=== PATIENT | male | born 1965 | race Caucasian/White ===

== ENCOUNTER 2018-04-01 10:02 | Emergency (ER) | payer SELFPAY ==
[2018-04-01 10:04] VITALS: BP 159/88; PULSE 82; RESP 18; TEMP 36.5; O2SAT 99; BMI 33.7
--- NOTE | 2018-04-01 10:17 | EKG12_ITS ---
Test Reason : AB PAIN Blood Pressure : / mmHG Vent. Rate : 081 BPM Atrial Rate : 081 BPM P-R Int : 150 ms QRS Dur : 078 ms QT Int : 368 ms P-R-T Axes : 035 082 055 degrees QTc Int : 427 ms Normal sinus rhythm Normal ECG Confirmed by SULEMA TAYLOR, NELLA ([id number]), material expeditor LEO BARRAGAN ([id number]) on 04/04/2018 1:31:53 PM Referred By: JAYLON Confirmed By:NELLA LEONE MD
--- NOTE | 2018-04-01 10:17 | CT_ITS ---
STUDY: CT ABDOMEN AND PELVIS WITHOUT CONTRAST REASON FOR EXAM: Male, 52 years old. 2 1/2 year history of right lower quadrant pain and nausea. RADIATION DOSAGE (If Supplied By Facility): CTDIvol = ( 21.12 ) mGy, DLP = ( 1165.91 ) mGycm TECHNIQUE: Transaxial images were obtained from the dome of the diaphragm to the symphysis pubis without oral contrast, and without intravenous contrast. Sagittal and coronal images were reconstructed. Individualized dose optimization techniques were used for this CT. COMPARISON: None. FINDINGS: Mild degree of increased linear markings at the right lung base suggestive of a atelectasis. The visualized portions of the heart are within normal limits. There is a 1 cm well-defined hypodensity in the posterior superior portion of the right lobe of the liver suggestive of a small cyst. There are surgical clips in the gallbladder fossa consistent with a prior cholecystectomy. Normal spleen. Normal pancreas. Normal bilateral adrenal glands. Normal right kidney. There is a 4.8 mm nonobstructive calculus in the lower pole calyx of the left kidney. There is a small hiatal hernia. Normal small intestine. There are scattered colonic diverticula consistent with diverticulosis. There are surgical clips in the region of the appendix consistent with a prior appendectomy. There is scattered atherosclerotic calcification of the abdominal aorta, without a demonstrated aneurysm. Normal inferior vena cava. Normal retroperitoneum. Normal urinary bladder. There are prostatic calcifications. Normal abdominal wall. There are mild degenerative changes of the visualized lumbar spine. Straightening of the normal lumbar lordosis. CT/Abdomen/Pelvis without Cont IMPRESSION: 4.8 mm nonobstructive calculus in the lower pole calyx of the left kidney. Sigmoid diverticulosis. Findings suggestive of a small cyst in the superior posterior aspect of the right lobe of the liver. Electronically Signed: Igor Davis MD at 11:18 EST Tel [phone], Service support ,
--- NOTE | 2018-04-01 10:25 | ED.DCSUM_ITS ---
- ER Visit Summary Date of Service: 04/01/18 Chief Complaint: [] Right-sided abdominal pain intermittently for about 3 years History of Present Illness: The patient is a 52 M [] history of intermittent right-sided abdominal pain for about 3 years that originally occurred after he had done heavy lifting with rocks, he indicates he chronically has pain to that side of his body. It causes some nausea sense of constant bloating, he has not seen a physician for this pain. Yesterday he was lifting quite a bit at work he developed recurrence of this pain and it persisted into the morning came in for evaluation, he takes his hand and draws across his entire right side of the abdomen, he has been able to eat and drink he has had normal bowel bladder habits no fever, Further he reports a family history for cancer in the mother and the father and he has been concerned for some time about some type of a mass causing the above pain he lives in [place] does not believe he can obtain the appropriate care at that facility local facilities so he came to this hospital for evaluation, he is on no medications and denies any past history Physical Examination: [] 158/88 afebrile, General, no distress resting comfortably HEENT is generally unremarkable The neck is supple no adenopathy Cardiovascular, regular rate and rhythm Lungs, clear bilateral Abdomen, soft nontender he points to the right side of his abdomen around the right middle quadrant however the palpation of the abdomen reveals no areas of focal tenderness rebound guarding organomegaly again this pain tends to be intermittent his exam to inspection shows nothing acute he denies any pain below of the umbilicus, his urinary and bowel habits have been normal Extremities, no clubbing cyanosis or edema Neurologic, awake alert answering questions appropriately moving all 4 extremities All the above IV fluids screening labs pain management CT Insert normal adult exam Test Results: [] Emergency Department Course and Treatment: [] CBC chemistry UA are all generally unremarkable, he asked that the PSA be drawn the study was also within normal range at 0.8, the abdominal CT shows nothing acute see that report and all the reports, there appears to be a small cyst in the liver and has some kidney stones in the left kidney nothing else that appears acute Spent time explaining all the above the patient and explained the concept of the fact that while his tests today are unremarkable he will need other outpatient management to determine his symptoms he understands he is referred to local [place] primary care physicians he was seen a bland diet follow-up with them return for change in symptoms Treatment Plan: [] Disposition: [] Home stable Impression: [] Intermittent right-sided abdominal pain for years etiology unclear This note was generated with [employer] dictation software. It may contain incorrect words, spelling, and punctuation that were not noted in review of the chart prior to signing ED Disposition - Plan for ED Patient: Chief Complaint: Abd Pain Referrals: Care Physician,No Primary [Primary Care Provider] -
[2018-04-01] MEDS: morphine 8 MG/ML Syringe IV (10:31)
[2018-04-01] MEDS: 0.9% Normal Saline 1,000 ML 1000 ML IV (10:31)
[2018-04-01] MEDS: Ondansetron 4 MG/2 ML Vial IV (10:31)
[2018-04-01 10:47] LABS: Absolute Lymphocyte Count 1.86 X10^3/ul (0.83-4.51); Absolute Neutrophil Count 6.4 X10^3/uL (2.0-7.7); Basophil# 0.03 X10^3/uL; Basophil% 0.3 % (0-1); Eosinophil# 0.03 X10^3/uL; Eosinophils% 0.3 % (0-5); Hematocrit 45.3 % (40-54); Hemoglobin 16.3 g/dl (13.0-16.5); Lymphocyte # 1.86 X10^3/ul (4.0); Lymphocyte % 20.7 % (19-41); Mean Corpuscular Hgb 30.2 pg (27.0-32.0); Mean Corpuscular Volume 83.9 fL (80-94); Monocyte# 0.65 X10^3/uL; Monocyte% 7.2 % (0-10); Neutrophil # 6.38 X10^3/uL (2.7-7.7); Neutrophil % 70.9 % (47-70); POSITIVE COUNT NO; POSITIVE DIFFERENTIAL NO; POSITIVE MORPHOLOGY NO; Platelet Count 254 K/mm3 (150-450); RBC Distribution Width CV 13.2 % (11.6-14.6)
[2018-04-01 10:54] LABS: AST(SGOT) 12 U/L (15-37); Alanine Aminotransfer ALT/SGPT 24 U/L (16-61); Albumin, Serum 3.7 g/dL (3.2-5.0); Alkaline Phosphatase 77 U/L (45-117); Anion Gap 8 (5-15); BUN 10 mg/dL (7-18); BUN/Creat Ratio 8.8 RATIO (10-20); Bilirubin, Direct 0.15 mg/dL (0.00-0.30); Calcium,Total 9.3 mg/dL (8.5-10.1); Chloride 103 mmol/L (98-107); Creatinine, Serum 1.14 mg/dL (0.70-1.30); EST Glomerular Filtration Rate 72 mL/min (>60); Est Glom Filt Rate - Afr Amer 87 mL/min (>60); Estimated Creatinine Clearance 79.15 ml/min; Globulin 4.1 g/dL (2.2-4.2); Glucose 96 mg/dL (74-106); Lipase 182 U/L (73-393); PSA,Total- Diagnostic 0.89 ng/mL (0.0-4.0); Potassium 3.9 mmol/L (3.5-5.1); Protein, Total 7.8 g/dL (6.4-8.2); Sodium Level 136 mmol/L (136-145)
[2018-04-01 11:55] LABS: Mucous, Urine 0 SEEN /hpf (<or=2+); Squamous Epithelial Cells - UA 0 SEEN /hpf (0-5); White Blood Cells 0 SEEN /hpf (0-5)
[2018-04-01 11:56] LABS: Color, Urine Yellow (Yellow); Glucose, Dipstick Normal (Normal); Ketone-Dipstick Negative (Negative); Leukocyte Esterase-Dipstick Negative /ul (Negative); Nitrite-Dipstick Negative (Negative); Occult Blood-Urine 25 /ul (Negative); Protein-Dipstick Negative (Negative); Specific Gravity, Urine 1.015 (1.002-1.030); Urine Bilirubin Dipstick Negative (Negative); Urine Clarity Sl. Cloudy (Clear); Urine Urobilinogen Normal (Normal)
[2018-04-01 12:02] LABS: Bacteria RARE /hpf (None Seen); Red Blood Cells-Urine 0-5 SEEN /hpf (0-5)
--- NOTE | 2018-04-01 12:31 | ED.DEP ---
ED Disposition - Plan for ED Patient: Chief Complaint: Abd Pain Instructions: ED Abdominal Pain Unkn Cause Referrals: Care Physician,No Primary [Primary Care Provider] - Dimas Pandya MD [STAFF PHYSICIAN] -
--- NOTE | 2018-04-01 12:46 | ED.DEP ---
ED Disposition - Plan for ED Patient: Chief Complaint: Abd Pain Instructions: ED Abdominal Pain Unkn Cause Male Referrals: Dimas Pandya MD [STAFF PHYSICIAN] - Care Physician,No Primary [Primary Care Provider] -
--- OUTSIDE RECORDS SUMMARY | 2018-07-03 18:38 | XMS RPT_ITS ---
:1965 Author Organization [facility] Care Team Providers Name Role Phone Madhu Regalado Attending Unavailable Primay Care Physicia, No Primary Care Unavailable PROBLEMS PROBLEMS No Problem Records FoundPROCEDURES PROCEDURES No Procedure Records FoundRESULTS RESULTS 12 LEAD ELECTROCARDIOGRAM Observed: 04/04/2018 Status: F Source: [place] 1:32 PM [facility] REPOSITORY [facility] Cardiovascular Services [address] [place] [address] 12 Lead EKG 04/01/18 1034 MR#: [id number] Acct: [id number] Name: MAGGIE BARRAGAN Rep #: [id number] : 1965 52 From: Gordo Leone MD Attending Dr: Status: DEP ER Ordering Dr: Madhu Regalado MD Date: 04/01/18 Location: ED Sex: M C Admitted: Test Reason : AB PAIN Blood Pressure : / mmHG Vent. Rate : 081 BPM Atrial Rate : 081 BPM P-R Int : 150 ms QRS Dur : 078 ms QT Int : 368 ms P-R-T Axes : 035 082 055 degrees QTc Int : 427 ms Normal sinus rhythm Normal ECG Confirmed by GORDO LEONE MD ([id number]), make up editor LEO BARRAGAN ([id number]) on 04/04/2018 1:31:53 PM Referred By: JAYLON Confirmed By:GORDO LEONE MD 04/04/18 1331 Date Gordo Leone MD CC: MD Charles Regalado; No Primary Care Physician Signed EMERGENCY DEPARTMENT Observed: 04/02/2018 Status: F Source: [place] SUMMARY 11:37 PM [facility] REPOSITORY [facility] Medical Records Department [address] [place] [address] Emergency Department Summary 04/01/18 1022 MR#: [id number] Acct: [id number] Name: MAGGIE BARRAGAN Rep #: [id number] : 1965 52 From: Madhu Regalado MD PCP: Care Physician, No Primary Status: DEP ER - ER Visit Summary Date of Service: 04/01/18 Chief Complaint: [] Right-sided abdominal pain intermittently for about 3 years History of Present Illness: The patient is a 52 M [] history of intermittent right-sided abdominal pain for about 3 years that originally occurred after he had done heavy lifting with rocks, he indicates he chronically has pain to that side of his body. It causes some nausea sense of constant bloating, he has not seen a physician for this pain. Yesterday he was lifting quite a bit at work he developed recurrence of this pain and it persisted into the morning came in for evaluation, he takes his hand and draws across his entire right side of the abdomen, he has been able to eat and drink he has had normal bowel bladder habits no fever, Further he reports a family history for cancer in the mother and the father and he has been concerned for some time about some type of a mass causing the above pain he lives in [facility] does not believe he can obtain the appropriate care at that facility local facilities so he came to this hospital for evaluation, he is on no medications and denies any past history Physical Examination: [] 158/88 afebrile, General, no distress resting comfortably HEENT is generally unremarkable The neck is supple no adenopathy Cardiovascular, regular rate and rhythm Lungs, clear bilateral Abdomen, soft nontender he points to the right side of his abdomen around the right middle quadrant however the palpation of the abdomen reveals no areas of focal tenderness rebound guarding organomegaly again this pain tends to be intermittent his exam to inspection shows nothing acute he denies any pain below of the umbilicus, his urinary and bowel habits have been normal Extremities, no clubbing cyanosis or edema Neurologic, awake alert answering questions appropriately moving all 4 extremities All the above IV fluids screening labs pain management CT Insert normal adult exam Test Results: [] Emergency Department Course and Treatment: [] CBC chemistry UA are all generally unremarkable, he asked that the PSA be drawn the study was also within normal range at 0.8, the abdominal CT shows nothing acute see that report and all the reports, there appears to be a small cyst in the liver and has some kidney stones in the left kidney nothing else that appears acute Spent time explaining all the above the patient and explained the concept of the fact that while his tests today are unremarkable he will need other outpatient management to determine his symptoms he understands he is referred to local [place] primary care physicians he was seen a bland diet follow-up with them return for change in symptoms Treatment Plan: [] Disposition: [] Home stable Impression: [] Intermittent right-sided abdominal pain for years etiology unclear This note was generated with [employer] dictation software. It may contain incorrect words, spelling, and punctuation that were not noted in review of the chart prior to signing ED Disposition - Plan for ED Patient: Chief Complaint: Abd Pain Referrals: Care Physician,No Primary [Primary Care Provider] - What to do if you have Problems For any increased pain, shortness of breath, bleeding, nausea or vomiting, chest pain, or any unexpected problems, contact your Primary Care Provider. Call [facility] ([phone]) or report to the closest Emergency Room. Call 911 if necessary. 04/02/18 5870 <Electronically signed by Madhu Regalado MD> Date Madhu Regalado MD Cosigner Signature (If Indicated): Date CC: No Primary Care Physician DISCHARGE INSTRUCTION Observed: 04/01/2018 Status: F Source: [place] 12:46 PM [facility] REPOSITORY [facility] Medical Records Department [address] [address] Discharge Instruction 04/01/18 1246 MR#: [id number] Acct: [id number] Name: YUNGMAGGIE L Rep #: [id number] : 1965 52 From: Madhu Regalado MD PCP: Sandro Physician, No Primary Status: REG ER ED Disposition - Plan for ED Patient: Chief Complaint: Abd Pain Instructions: ED Abdominal Pain Unkn Cause Male Referrals: Dimas Barragan MD [STAFF PHYSICIAN] - Care Physician,No Primary [Primary Care Provider] - What to do if you have Problems For any increased pain, shortness of breath, bleeding, nausea or vomiting, chest pain, or any unexpected problems, contact your Primary Care Provider. Call [email or web address] ([phone]) or report to the closest Emergency Room. Call 911 if necessary. 04/01/18 1246 <Electronically signed by Madhu Regalado MD> Date Madhu Regalado MD Cosigner Signature (If Indicated): Date CC: No Primary Care Physician DISCHARGE INSTRUCTION Observed: 04/01/2018 Status: F Source: [place] 12:31 PM [facility] REPOSITORY [facility] Medical Records Department [address] [place] [address] Discharge Instruction 04/01/18 1231 MR#: [id number] Acct: [id number] Name: YUNGMAGGIE Parsons Rep #: [id number] : 1965 52 From: Madhu Regalado MD PCP: Sandro Physician, No Primary Status: REG ER ED Disposition - Plan for ED Patient: Chief Complaint: Abd Pain Instructions: ED Abdominal Pain Unkn Cause Referrals: Care Physician,No Primary [Primary Care Provider] - Dimas Barragan MD [STAFF PHYSICIAN] - What to do if you have Problems For any increased pain, shortness of breath, bleeding, nausea or vomiting, chest pain, or any unexpected problems, contact your Primary Care Provider. Call [facility] ([phone]) or report to the closest Emergency Room. Call 911 if necessary. 04/01/18 1231 <Electronically signed by Madhu Regalado MD> Date Madhu Regalado MD Cosigner Signature (If Indicated): Date CC: No Primary Care Physician URINALYSIS, COMPLETE Collected: 04/01/2018 Status: F Source: [place] 11:45 AM [facility] REPOSITORY Order Comment: Order Date: 04/01/18 How was Urine Obtained? CLEAN CATCH TYPE CODE TESTS RESULT OUT OF RANGE REFERENCE UNITS LAB L400.3000 Yellow COLOR Normal Yellow LAB L400.3050 Clear Normal CLARITY Sl. Cloudy LAB L400.3200 Normal mg/dl Normal GLUCOSE, UR Normal LAB L400.3300 Negative mg/dL Normal BILIRUBIN URINE Negative LAB L400.3400 Negative mg/dl Normal KETONE UR Negative LAB L400.3465 1.002-1.030 Normal SP.GR. DIPSTX 1.015 LAB L400.3550 5.0 - 8.0 pH UR Normal 5.0 LAB L400.3600 Negative mg/dl PROT Normal DIPSTX Negative LAB L400.3700 Normal mg/dl Normal UROBILI Normal LAB L400.3750 Negative Normal NITRITE UR Negative LAB L400.3780 Negative /ul High 25 OCCULT BLOOD-UR LAB L400.3800 Negative /ul LEUK Normal ESTERASE Negative LAB L400.4050 0-5 /hpf WBC 0 Normal SEEN LAB L400.4100 0-5 /hpf Normal RBC-UA 0-5 SEEN LAB L400.4150 0-5 /hpf SQUAM 0 Normal EPI SEEN LAB L400.4300 None Seen /hpf Normal BACTERIA RARE LAB L400.4350 <or=2+ /hpf 0 Normal MUCUS, URINE SEEN Performed By: #### L400.0001 #### [facility] [address] [place], [place], [address] CBC W/DIFF, AUTOMATED Collected: 04/01/2018 Status: F Source: [place] 10:25 AM [facility] REPOSITORY TYPE CODE TESTS RESULT OUT OF RANGE REFERENCE UNITS LAB L100.1000 4.4-11.0 K/mm3 Normal WBC 9.0 LAB L100.1200 4.6-6.2 M/mm3 Normal RBC 5.40 LAB L100.1300 13.0-16.5 g/dl Normal HGB 16.3 LAB L100.1400 40-54 % Normal HCT 45.3 LAB L100.1500 80-94 fL Normal MCV 83.9 LAB L100.1600 27.0-32.0 pg Normal MCH 30.2 LAB L100.1700 32-36 g/gl Normal MCHC 36.0 LAB L100.1810 11.6-14.6 % Normal RDW CV 13.2 LAB L100.1820 35.1-43.9 fl Normal RDW SD 40.0 LAB L100.1900 150-450 K/mm3 Normal PLT 254 LAB L100.2000 6.2-12.0 fl Normal MPV 10.0 LAB L100.2100 47-70 % High NEUT% 70.9 LAB L100.2200 19-41 % Normal LY% 20.7 LAB L100.2300 0-10 % Normal MONO% 7.2 LAB L100.2400 0-5 % Normal EO% 0.3 LAB L100.2500 0-1 % Normal BASO% 0.3 LAB L100.2550 0.0-0.9 % Normal IM GRAN % 0.600 Result Comment: IG% - Immature Granulocytes (promyelocytes, myelocytes and metamyelocytes) > 1% indicates that a LEFT SHIFT is Present. LAB L100.2620 2.0-7.7 X10 3/uL Normal Absolute Neut 6.4 LAB L100.2720 0.83-4.51 X10 3/ul Normal Absolute Lymph 1.86 Performed By: #### L100.0100 #### [facility] [address] [place], [place], [address] BASIC METABOLIC Collected: 04/01/2018 Status: F Source: [place] PROFILE (BMP) 10:25 AM [facility] REPOSITORY TYPE CODE TESTS RESULT OUT OF RANGE REFERENCE UNITS LAB L501.0100 74-106 mg/dL Normal GLU 96 Result Comment: Please note revised GLUCOSE reference range effective 2017. LAB L501.1000 7-18 mg/dL Normal BUN 10 LAB L501.1100 0.70-1.30 mg/dL Normal CREAT,SERUM 1.14 Result Comment: The validity of the calculated GFR AND GFRAA in patients over 70 years has not been determined. Clinical correlation is essential. LAB L501.1110 >60 mL/min Normal EST GFR 72 Result Comment: Non- GFR Calc LAB L501.1115 >60 mL/min Normal EST GFR - AA 87 Result Comment: GFR Calc LAB L501.1255 ml/min Normal Estimated CRCL 79.15 LAB L501.1300 10-20 RATIO Low BUN/CRE 8.8 LAB L501.2200 8.5-10 mg/dL Normal .1 CA 9.3 LAB L501.5300 136-14 mmol/L Normal 5 NA 136 LAB L501.5600 3.5-5. mmol/L Normal 1 K 3.9 LAB L501.5900 98-107 mmol/L Normal CL 103 LAB L501.6100 21.0-3 mmol/L Normal 2.0 CO2 25.0 LAB L501.6200 5-15 Normal GAP 8 Performed By: #### L500.2500, L500.3400, L501.2450, L501.4010, L501.9940 #### [facility] [address] [place], [address] LIVER PROFILE Collected: 04/01/2018 Status: F Source: [place] 10:25 AM [facility] REPOSITORY TYPE CODE TESTS RESULT OUT OF RANGE REFERENCE UNITS LAB L501.1500 6.4-8.2 g/dL Normal T PROT 7.8 LAB L501.1800 3.2-5.0 g/dL Normal ALB 3.7 LAB L501.1950 2.2-4.2 g/dL Normal GLOB 4.1 LAB L501.4100 15-37 U/L Low AST 12 LAB L501.4305 45-117 U/L Normal ALK P 77 LAB L501.4405 16-61 U/L Normal ALT 24 LAB L501.4600 0.20-1.00 mg/dL Normal T BILI 0.40 LAB L501.4700 0.00-0.30 mg/dL Normal D BILI 0.15 Performed By: #### L500.2500, L500.3400, L501.2450, L501.4010, L501.9940 #### [facility] [address] [place], [address] LIPASE Collected: 04/01/2018 Status: F Source: [place] 10:25 AM [facility] REPOSITORY TYPE CODE TESTS RESULT OUT OF RANGE REFERENCE UNITS LAB L501.2450 73-393 U/L Normal LIPASE 182 Performed By: #### L500.2500, L500.3400, L501.2450, L501.4010, L501.9940 #### [facility] [address] [place], [place], [address] TROPONIN-I Collected: 04/01/2018 Status: F Source: [place] 10:25 AM [facility] REPOSITORY TYPE CODE TESTS RESULT OUT OF RANGE REFERENCE UNITS LAB L501.4010 <0.045 ng/mL Normal < 0.015 TROPONIN-I Result Comment: TROPONIN-I EXPECTED VALUES <0.045 Negative 0.045 - 0.590 Consistent with Cardiac Damage > OR = 0.600 Critical Value Not every elevated troponin is indicative of NJ. These values should be used with clinical judgement in examining the patient's clinical picture for diagnosis. To establish a diagnosis of NJ versus myocardial injury, there must be a demonstrated rise and/or fall in the troponin values, in addition to ischemic symptoms, EKG changes, new regional wall motion abnormality, and/or angiographical evidence. PLEASE NOTE: REFERENCE RANGES EDITED 17 Performed By: #### L500.2500, L500.3400, L501.2450, L501.4010, L501.9940 #### [facility] [address] [place], [place], [address] PSA,TOTAL- DIAGNOSTIC Collected: 04/01/2018 Status: F Source: [place] 10:25 AM [facility] REPOSITORY TYPE CODE TESTS RESULT OUT OF RANGE REFERENCE UNITS LAB L501.9940 0.0-4.0 ng/mL PSA, Normal DIAGNOSTIC 0.89 Result Comment: This test was performed using the TPSA assay method for the [employer] chemistry system. Values obtained with different assay methods cannot be used interchangably. When changing PSA assays in the course of monitoring a patient, additional sequential testing should be carried out to confirm baseline values. Performed By: #### L500.2500, L500.3400, L501.2450, L501.4010, L501.9940 #### [facility] [address] [place], [address] ABDOMEN/PELVIS WITHOUT Observed: 04/01/2018 Status: F Source: [place] CONT 10:19 AM [facility] REPOSITORY [facility] Imaging Services [address] [place] [address] Abdomen/Pelvis without Cont MR#: [id number] Acct: [id number] Name: MAGGIE BARRAGAN Rep #: [id number] : 1965 M 52 From: Igor Davis MD PCP: Care Physician, No Primary Status: REG ER Study: Abdomen/Pelvis without Cont Date of Exam: 04/01/18 Exam# [id number] Ordering Dr: Madhu Regalado MD STUDY: CT ABDOMEN AND PELVIS WITHOUT CONTRAST REASON FOR EXAM: Male, 52 years old. 2 1/2 year history of right lower quadrant pain and nausea. RADIATION DOSAGE (If Supplied By Facility): CTDIvol = ( 21.12 ) mGy, DLP = ( 1165.91 ) mGycm TECHNIQUE: Transaxial images were obtained from the dome of the diaphragm to the symphysis pubis without oral contrast, and without intravenous contrast. Sagittal and coronal images were reconstructed. Individualized dose optimization techniques were used for this CT. COMPARISON: None. FINDINGS: Mild degree of increased linear markings at the right lung base suggestive of a atelectasis. The visualized portions of the heart are within normal limits. There is a 1 cm well-defined hypodensity in the posterior superior portion of the right lobe of the liver suggestive of a small cyst. There are surgical clips in the gallbladder fossa consistent with a prior cholecystectomy. Normal spleen. Normal pancreas. Normal bilateral adrenal glands. Normal right kidney. There is a 4.8 mm nonobstructive calculus in the lower pole calyx of the left kidney. There is a small hiatal hernia. Normal small intestine. There are scattered colonic diverticula consistent with diverticulosis. There are surgical clips in the region of the appendix consistent with a prior appendectomy. There is scattered atherosclerotic calcification of the abdominal aorta, without a demonstrated aneurysm. Normal inferior vena cava. Normal retroperitoneum. Normal urinary bladder. There are prostatic calcifications. Normal abdominal wall. There are mild degenerative changes of the visualized lumbar spine. Straightening of the normal lumbar lordosis. CT/Abdomen/Pelvis without Cont IMPRESSION: 4.8 mm nonobstructive calculus in the lower pole calyx of the left kidney. Sigmoid diverticulosis. Findings suggestive of a small cyst in the superior posterior aspect of the right lobe of the liver. Electronically Signed: Igor Davis MD at 11:18 EST Tel [phone], Service support , CC: MD Soto Jwayyeyousif; No Primary Care Physician Assembly Hand: Signed ALLERGIES ALLERGIES DATE TYPE / CODE NAME / CODE REACTION SEVERITY SOURCE 04/01/2018 Drug Penicillins/ Unknown Unknown [facility] Allergy/4160 [id number]([facility] [address]697(SNOMED XNORM) Repository CT) ENCOUNTERS ENCOUNTERS ADMIT/DISCHARGE ACCOUNT ADMITTING ENCOUNTER LOCATION SOURCE NUMBER CLASS 04/01/2018/ [id number] Emergency [facility] [place] [facility] ing:ED Repository PAYERS PAYERS ENCOUNTER GUARANTOR PAYER SUBSCRIBER SOURCE 04/01/2018 MAGGIE L Primary NOT GIVENUNK [place] [id number] TW Insurance:SELF PAY [address], Number: [place] [id number]: Date:2018-04-01 ()
== END 2018-04-01 14:09 | disposition home or self-care (01) ==
PROVIDERS: Emergency Provider Emergency Medicine
DX: K76.89 Other specified diseases of liver (principal); N20.0 Calculus of kidney; K57.30 Diverticulosis of large intestine without perforation or abscess without bleeding; R10.9 Unspecified abdominal pain; Z80.9 Family history of malignant neoplasm, unspecified
CPT/HCPCS: 74176; 80048; 80076; 81001; 83690; 84153; 84484; 85025; 93005; 96361; 96374; 96375; 99283; J7030; A4216; J2405

== ENCOUNTER 2021-03-17 10:04 | Day surgery (SDC) | payer OTHER, SELFPAY ==
[2021-03-17] VITALS (8 sets, daily range): BP systolic 98–128; BP diastolic 64–75; PULSE 61–96; RESP 16–18; TEMP 36.4–37.2; O2SAT 16–96; BMI 34.7
--- NOTE | 2021-03-17 | GASB_PTH ---
PATIENT: MAGGIE BARRAGAN LOC: EN U#:[id number] AGE/SX: 55/M ROOM: RE03/17/[address]: Dr. Zach Cordon MD : 1965 BED: DIS: 03/17/2021 SPEC #: [id number] RECD: 03/17/21 15:33 STATUS: WAYNE JOSEPH #: [id number] ILDEFONSO: 03/17/21 00:[address]: Zach Cordon DEPT: SURGICAL PATHOLOGY RECD BY: Jarrod Macedo ENTERED: 03/20/21 10:40 SP TYPE: Gastric Bx OTHR DR: Cecilia Buenrostro PA-C Tissues: A - Gastric mucous membrane B - Gastric mucous membrane Procedures: Special Stain Group II Surgery Specimen Level IV Alcian Blue/PAS (control) HEADER OPERATION: Colonoscopy, EGD ([facility] [place]) PRE-OP DIAGNOSIS: GERD, black stools, irritable bowel syndrome TISSUE SUBMITTED: A ? Antrum biopsy for H. pylori and path, B ? GE junction biopsy MICROSCOPIC DIAGNOSIS A. Gastric antrum, biopsy: Mild chronic gastritis. See comment. B. Gastroesophageal junction, biopsy: Gastroesophageal junctional mucosa with mild chronic inflammation. No evidence of goblet cell metaplasia. See comment. AM:any 03/21/2021 COMMENT A. The results of immunohistochemistry for Helicobacter pylori will be reported separately ([id number]). B. Alcian blue/PAS stain with matched control supports the above diagnosis. MICROSCOPIC DESCRIPTION Slides are reviewed. GROSS DESCRIPTION A - Received in fixative is one container labeled with the patient's name and designated antrum biopsy. The specimen consists of multiple irregular fragments of light wood soft tissue that in aggregate measure 0.8 x 0.2 x 0.1 cm. The specimen is totally submitted in one cassette. B - Received in fixative is one container labeled with the patient's name and designated GE junction biopsy. The specimen consists of two irregular fragments of light wood soft tissue that in aggregate measure 0.6 x 0.3 x 0.1 cm. The specimen is totally submitted in one cassette. / SJ:any 03/20/21 TC:3 CPT: 45367 x2
--- NOTE | 2021-03-17 10:35 | HP.PCM_ITS ---
History and Physical Date of Admission: 03/17/21 Date of Service: 02/14/21 MR#:[id number]:[id number]: MAGGIE BARRAGAN [facility] #:[id number]:1965 Provider:Clement Horton/Sex: 55/M [facility] Vital Signs 02/14/21 10:04 Height 5 ft 10 in Weight: 247 lb 4 oz BMI 35.4 BP 159/93 H Blood Pressure Location Rt brachial Position Sitting Respiration 18 Pulse 77 Pulse Source NIBP Temp 98.2 F Temp Source Temporal Pulse Oximetry (%) 98 Oxygen Delivery Method room air Intake Visit Reasons: CSCOPE, EGD Chief Complaint: c-scope/ EGD Shipping Supervisor Required: No Is patient in pain?: No Allergies Penicillins [PCN] Allergy (Mild, Verified 02/14/21 10:07) rash Medications apple cider vinegar 500 mg tablet mg PO 02/14/21 [History Confirmed 02/14/21] ascorbic acid (vitamin C) 500 mg capsule mg PO 02/14/21 [History Confirmed 02/14/21] aspirin 81 mg tablet,delayed release 81 mg PO DAILY 02/14/21 [History Confirmed 02/14/21] cholecalciferol (vitamin D3) 125 mcg (5,000 unit) capsule 125 mcg PO DAILY 02/14/21 [History Confirmed 02/14/21] garlic 1,500 mg capsule 1,500 mg PO QPC 02/14/21 [History Confirmed 02/14/21] omega-3 fatty acids 1,000 mg capsule 1,000 mg PO DAILY 02/14/21 [History Confirmed 02/14/21] [facility] Medical History Atrial fibrillation GERD (gastroesophageal reflux disease) Hepatic steatosis Osteoarthritis Surgical History History of appendectomy History of cholecystectomy History of colonoscopy (~2010) History of esophagogastroduodenoscopy (EGD) (~2010) Family History Mother Breast cancer Father Diabetes Cancer stomach/esophageal Brother Diabetes Social History Smoking Status: Current every day smoker HPI HPI HPI: MAGGIE BARRAGAN, is a 55 M who presents to the office today for a long?standing history of gastroesophageal reflux disease. They are referred for surgical consultation from TIFFANIE Mares. He states that he has appreciated a significant improvement in his heartburn symptoms after beginning a regular consumption of apple cider vinegar in the evenings. He now feels this symptom only every 2 to 3 weeks whereas previously he felt this discomfort daily. He also finds that when he experiences any heartburn, soda water rapidly relieves the symptoms. He actively avoids food triggers such as milk, refrigerated pizza, and granola. He has limited his eating to no meals after 7 PM and retires to bed at 9 PM. He states he formally experienced aspiration events where he woke up unable to breathe but this has not happened for a couple of years. Beyond heartburn he now experiences some mild nausea and bloating. He was previously seen by primary care physician who had initiated different medical therapies through the years to include possibly a PPI as well as Carafate. Mr. Barragan never felt like he was being taken seriously for these issues and therefore abandoned the medications and stopped seeing that physician. Patient has a family history of gastric cancer in his father who passed with the age of 53. He states the diagnosis was made as esophageal cancer, but by the time he underwent surgery the cancer was found encasing the surrounding anatomy and he was just as promptly closed and shortly thereafter. Piecing together, the diagnosis after the fact, he was told that the cancer likely began as a posterior wall gastric ulcer that had then grown to involve the esophagus. Patient describes a history of irritable bowel syndrome. He states that he is largely outgrown this issue as it used to be if he felt a bowel movement he had to find the toilet immediately or risk incontinence. He now describes his bowel movements as a 50-50 breakdown between normal stools and constipation/diarrhea (with constipation predominating). He notes that approximately 3 years ago he was seen at an emergency facility and was dismissed by the emergency medicine provider who obtained a CT scan, but was followed up with a nurse who suggested he may have diverticulosis. He initiated better bowel regimen based on her recommendation and did experience some relief of his symptoms. He denies noting any clive blood with bowel movements but does occasionally note a dark tarry stool. He is uncertain whether he is supplementing any iron as he takes a homeopathic regimen 'humaglo;'-sp*? that may contain iron as one of its ingredients. He does not take any fiber supplementation as he states he tried this before but got bound up and confirms that he took everything according to the label?including specifically increasing his fluid intake. He does not take laxatives on a regular basis. He has undergone 2 prior colonoscopies starting at age 41 with the most recent in 2010 which did not demonstrate any remarkable findings. These investigations were occasioned by his history of IBS and intestinal?related cancer in his father. Patient has a fairly stable weight history. He states that he tends to gain 10 pounds in the winter when his activity level drops, but loses that 10 pounds when he is more active in the yard during the nicer weather. Patient has a longstanding smoking history. He describes this started after moving to [facility] when he met some friends who smoke while playing poker. He states that his consumption has remained relatively the same at half a pack per day x20 years. His is also a smoker. ROS General General: Yes fatigue; No weight change, appetite, colon cancer, breast cancer or weakness HEENT HEENT: No difficulty swallowing, eye injury, eye surgery, swollen glands or hoarseness Endo Endocrine: No thyroid disease, diabetes mellitus, thyroid cancer, Hair loss, heat intolerance or cold intolerance Musc Musculoskeletal: Yes arthritis; No back problems, rheumatoid arthritis, gout or joint pain Cardio Cardiovascular: Yes atrial fibrillation; No murmur, pacemaker, heart disease, high blood pressure, heart attack, heart stent, palpitations, shortness of breat with exertion or chest pain Psych Psychiatric: No depression, anxiety or hearing voices Resp Respiratory: No shortness of breath, No sleep apnea, No cough, No COPD, No asthma, No emphysema and No wheezing Gastro Gastrointestinal: Yes abdominal pain, Yes nausea or vomiting, Yes diarrhea, Yes constipation, No blood in stool, Yes acid reflux, No hemorrhoids, No ulcers, No gallbladder problem and Yes black,tarry stools Fabiano Hematologic: No blood thinners, No blood disorders, No bleeding, No anemia and No blood clots Neuro Neurologic: No weakness Exam Const General: cooperative and anxious (Mildly) Orientation: alert, awake and oriented x3 Resp Effort & Inspection: normal respiratory effort Auscultation: no egophony, no rales and no rhonchi Cardio Rate: regular rate Rhythm: regular rhythm Heart Sounds: S1 normal and S2 normal GI Inspection: non-distended, no scars and other (Obese) Palpation: no hernias and tender (Mildly tender in all 4 quadrants but particularly the lower quadrants) Assessment and Plan Assessment and Plan (1) GERD (gastroesophageal reflux disease): Status: Acute Comment: This is a 55-year-old male with long?standing history of GERD who no longer sana es traditional medical therapy for this issue but supplements with apple cider vinegar and has modified his dietary habits to obtain reasonable control. He does have a family history of gastric cancer and is anxious about minimizing his personal risk for this issue. Plan - Dr. Zach Cordon MD: ?Plan for EGD under local MAC with biopsies for H. pylori and as needed for any endoscopic findings (2) Black stools: Status: Acute Comment: Patient describes as episodic. Unable to confirm or deny supplementation with iron. Does take numerous homeopathic supplements which could be iron?containing. Denies any clive blood in stools. Last scope was 10 years ago in 2010 and unremarkable for its findings. Does admit to abnormal bowel habits with frequent constipation and occasional diarrhea Plan - Dr. Zach Cordon MD: Diagnostic colonoscopy under local MAC (3) Family history of gastric cancer: Status: Acute Comment: As above, patient has a personal history of GERD but father at the age of 53 following a diagnosis of gastric cancer in 1990. Tumor was inoperable by the time the diagnosis was made. Initially mistaken for an esophageal prima ry, but actually represented growth from the stomach. Patient counseled to try to minimize his personal risk factors including smoking and obesity. Plan - Dr. Zach Cordon MD: ?Smoking cessation encouraged ?Exercise encouraged ?EGD under local MAC as above (4) History of irritable bowel syndrome: Status: Acute Comment: Patient with significant improvement over history of fecal incontinence, but persistent constipation alternating with diarrhea. Due for repeat colonoscopy since last scope was 10 years ago. Also reporting dark stools so diagnostic colonoscopy further warranted. Plan - Dr. Zach Cordon MD: Diagnostic colonoscopy under local MAC Coding Level of Care Code Off vis,est,level 4 Diagnoses GERD (gastroesophageal reflux disease) K21.9 Black stools K92.1 Family history of gastric cancer Z80.0 History of irritable bowel syndrome Z87.19 I have re-examined the patient. There are no clinical changes since date of exam. He states that he completed his bowel prep successfully and his output has now turned clear. Prior to his bowel prep and in the interval since our visit, he describes no other issues with dark/bloody stools. He does remark of some mild discomfort in the epigastrium but no significant heartburn symptoms. We will therefore plan to proceed with scheduled EGD and colonoscopy under local MAC for indications of black stools, history of irritable bowel syndrome, family history of gastric cancer and personal history of GERD.
[2021-03-17] MEDS: Lactated Ringers 1,000 ML 15 ML IV ×2 (10:43→12:29)
--- NOTE | 2021-03-17 11:00 | IMM_PTH ---
PATIENT: MAGGIE BARRAGAN LOC: EN U#:[id number] AGE/SX: 55/M ROOM: RE03/17/[address]: Dr. Zach Cordon MD : 1965 BED: DIS: 03/17/2021 SPEC #: [id number] RECD: 03/20/21 13:35 STATUS: WAYNE REAmara #: [id number] ILDEFONSO: 03/17/21 11:[address]: Zach Cordon DEPT: IMMUNOHISTOCHEMISTRY RECD BY: Tamica Torres ENTERED: 03/20/21 13:35 SP TYPE: IMMUNO OTHR DR: Cecilia Buenrostro PA-C Tissues: A - Stomach, NOS Procedures: H Pylori (initial) PHYSICIAN & INSTITUTION [place] [id number] SPECIMEN INFORMATION: Tissue Source: A ? Antrum biopsy Clinical Info: GERD, black stools, irritable bowel syndrome Specimen Number: [id number] CPT code: 93786 METHODOLOGY: Deparaffinized sections of prefer/formalin-fixed tissue or PAP/DQ stained slides are incubated with monoclonal/polyclonal antibodies/oligonucleotide probes. Localization is made via biotin free immunoperoxidase method. Appropriate controls are performed and reacted as expected. Results on target cell population are indicated in the following table: RESULTS: ANTIBODY / CLONE RESULT Block A H Pylori (polyclonal) negative These tests were developed and their performance characteristics determined by [facility]. They may not have been cleared or approved by the U.S. Food and Drug Administration. The FDA has determined that such clearance or approval is not necessary. INTERPRETATION: A. Antrum biopsy: Negative for Helicobacter pylori organisms. AM:any 03/22/2021
--- NOTE | 2021-03-17 12:28 | OP.EGD_ITS ---
Patient Name: Tavares Pandya Procedure Date: 03/17/2021 10:28 AM Date of : 1965 Age: 55 Procedure: Upper GI endoscopy Indications: Gastro-esophageal reflux disease, Helicobacter pylori status not known, Personal history of malignant gastric neoplasm Providers: Zach Cordon MD Referring MD: Zach Cordon MD Medicines: See the Anesthesia note for documentation of the administered medications Patient Profile: Refer to note in patient chart for documentation of history and physical. Complications: No immediate complications. Estimated blood loss: Minimal. Procedure: Pre-Anesthesia Assessment: - The heart rate, respiratory rate, oxygen saturations, blood pressure, adequacy of pulmonary ventilation, and response to care were monitored throughout the procedure. After obtaining informed consent, the endoscope was passed under direct vision. Throughout the procedure, the patient's blood pressure, pulse, and oxygen saturations were monitored continuously. The gastroscope was introduced through the mouth, and advanced to the second part of duodenum. The upper GI endoscopy was accomplished without difficulty. The patient tolerated the procedure fairly well. Scope In: 11:12:29 AM Scope Out: 11:29:59 AM Total Procedure Duration Time 0 hours 17 minutes 30 seconds Findings: The examined duodenum was normal. No biopsies or other specimens were collected for this exam. Diffuse moderate inflammation [Hemorrhage] characterized by erythema was found in the gastric antrum. Biopsies were taken with a cold forceps for histology. Estimated blood loss was minimal. Biopsies were taken with a cold forceps for Helicobacter pylori cultures. Estimated blood loss was minimal. The Z-line was regular and was found 40 cm from the incisors. Biopsies were taken with a cold forceps for histology. Coagulation for hemostasis using bipolar probe was successful. Estimated blood loss was minimal. Impression: - Normal examined duodenum. No specimens collected. - Gastritis. Biopsied. - Z-line regular, 40 cm from the incisors. Biopsied. Treated with bipolar cautery. Recommendation: - Discharge patient to home (via wheelchair). - Resume regular diet today. - Use Protonix (pantoprazole) 20 mg PO daily today. - Await pathology results. - Telephone my office for pathology results in 1 week. - Continue present medications. Procedure Code(s): --- Professional --- 73396, 60, Esophagogastroduodenoscopy, flexible, transoral; with control of bleeding, any method 24015, Esophagogastroduodenoscopy, flexible, transoral; with biopsy, single or multiple Diagnosis Code(s): --- Professional --- K29.70, Gastritis, unspecified, without bleeding K21.9, Gastro-esophageal reflux disease without esophagitis Z85.028, Personal history of other malignant neoplasm of stomach CPT copyright 2017 [employer]. All rights reserved. The codes documented in this report are preliminary and upon chainsaw mechanic review may be revised to meet current compliance requirements. Zach Cordon MD 03/17/2021 12:28:00 PM This report has been signed electronically. Number of Addenda: 0 Note Initiated On: 03/17/2021 10:28 AM
--- NOTE | 2021-03-17 12:29 | OP.CCLET_ITS ---
03/17/2021 [facility] Re : Upper GI endoscopy procedure for Tavares Buenrostro This procedure was performed on Wednesday, March 17, 2021. My impressions and recommendations are as follows: Impressions : - Normal examined duodenum. No specimens collected. - Gastritis. Biopsied. - Z-line regular, 40 cm from the incisors. Biopsied. Treated with bipolar cautery. Recommendations : - Discharge patient to home (via wheelchair). - Resume regular diet today. - Use Protonix (pantoprazole) 20 mg PO daily today. - Await pathology results. - Telephone my office for pathology results in 1 week. - Continue present medications. My findings are described in the full procedure note, which is enclosed. If I can be of further assistance, please feel free to contact me at Doctor phone number(s): , Work: . Sincerely, Zach Cordon MD 03/17/2021 12:28:00 PM This report has been signed electronically.
--- NOTE | 2021-03-17 12:37 | OP.COLON_ITS ---
Patient Name: Tavares Pandya Procedure Date: 03/17/2021 11:31 AM Date of : 1965 Age: 55 Procedure: Colonoscopy Indications: Change in bowel habits Providers: Zach Cordon MD Referring MD: Zach Cordon MD Medicines: See the Anesthesia note for documentation of the administered medications Patient Profile: Refer to note in patient chart for documentation of history and physical. Last Colonoscopy: 10 years ago. Complications: No immediate complications. Estimated blood loss: Minimal. Procedure: Pre-Anesthesia Assessment: - The heart rate, respiratory rate, oxygen saturations, blood pressure, adequacy of pulmonary ventilation, and response to care were monitored throughout the procedure. - The heart rate, respiratory rate, oxygen saturations, blood pressure, adequacy of pulmonary ventilation, and response to care were monitored throughout the procedure. After I obtained informed consent, the scope was passed under direct vision. Throughout the procedure, the patient's blood pressure, pulse, and oxygen saturations were monitored continuously. The Colonoscope was introduced through the anus and advanced to the cecum, identified by its appearance. The colonoscopy was technically difficult and complex due to poor bowel prep. Successful completion of the procedure was aided by lavage. The colonoscopy was technically difficult and complex due to a tortuous colon. Successful completion of the procedure was aided by changing the patient to a supine position. The patient tolerated the procedure well. Scope In: 11:33:08 AM Scope Withdrawal Time 0 hours 19 minutes 49 seconds Scope Out: 12:17:22 PM Total Procedure Duration Time 0 hours 44 minutes 14 seconds Findings: A few medium-sized diffuse angiodysplastic lesions without bleeding were found in the ascending colon. No biopsies or other specimens were collected for this exam. No biopsies or other specimens were collected for this exam. Many large-mouthed diverticula were found in the sigmoid colon and descending colon. No biopsies or other specimens were collected for this exam. No additional abnormalities were found on retroflexion. Impression: - A few non-bleeding colonic angiodysplastic lesions. No specimens collected. - Diverticulosis in the sigmoid colon and in the descending colon. No specimens collected. Recommendation: - Discharge patient to home (via wheelchair). - Resume regular diet today. - Continue present medications. - Use fiber, for example Citrucel, Fibercon, Konsyl or Metamucil. - Await pathology results. - Repeat colonoscopy in 10 years for screening purposes. - Telephone my office for pathology results in 1 week. Procedure Code(s): --- Professional --- 56740, Colonoscopy, flexible; diagnostic, including collection of specimen(s) by brushing or washing, when performed (separate procedure) Diagnosis Code(s): --- Professional --- K55.20, Angiodysplasia of colon without hemorrhage R19.4, Change in bowel habit K57.30, Diverticulosis of large intestine without perforation or abscess without bleeding CPT copyright 2017 [employer]. All rights reserved. The codes documented in this report are preliminary and upon campaign coordinator review may be revised to meet current compliance requirements. Zach Cordon MD 03/17/2021 12:36:27 PM This report has been signed electronically. Number of Addenda: 0 Note Initiated On: 03/17/2021 11:31 AM
--- NOTE | 2021-03-17 12:37 | OP.CCLET_ITS ---
03/17/2021 Cecilia Buenrostro Re : Colonoscopy procedure for Tavares Buenrostro This procedure was performed on Wednesday, March 17, 2021. My impressions and recommendations are as follows: Impressions : - A few non-bleeding colonic angiodysplastic lesions. No specimens collected. - Diverticulosis in the sigmoid colon and in the descending colon. No specimens collected. Recommendations : - Discharge patient to home (via wheelchair). - Resume regular diet today. - Continue present medications. - Use fiber, for example Citrucel, Fibercon, Konsyl or Metamucil. - Await pathology results. - Repeat colonoscopy in 10 years for screening purposes. - Telephone my office for pathology results in 1 week. My findings are described in the full procedure note, which is enclosed. If I can be of further assistance, please feel free to contact me at Doctor phone number(s): , Work: . Sincerely, Zach Cordon MD 03/17/2021 12:36:27 PM This report has been signed electronically.
== END 2021-03-17 13:20 ==
LOC: EN 10:05 → AC 10:06
PROVIDERS: PCP Family Medicine; Referring Provider Surgery; Visit Provider Surgery
PROC: 0DJD8ZZ Inspection of Lower Intestinal Tract, Via Natural or Artificial Opening Endoscopic (ICD-10-PCS; CPT 45378; principal; 2021-03-17 10:55)
DX: K55.20 Angiodysplasia of colon without hemorrhage (principal); K57.30 Diverticulosis of large intestine without perforation or abscess without bleeding; R19.4 Change in bowel habit; K29.50 Unspecified chronic gastritis without bleeding; K29.70 Gastritis, unspecified, without bleeding; K21.9 Gastro-esophageal reflux disease without esophagitis; F17.200 Nicotine dependence, unspecified, uncomplicated; I48.91 Unspecified atrial fibrillation; Z63.4 Disappearance and death of family member; Z85.028 Personal history of other malignant neoplasm of stomach; Z79.82 Long term (current) use of aspirin; Z88.0 Allergy status to penicillin; Z80.0 Family history of malignant neoplasm of digestive organs; Z87.19 Personal history of other diseases of the digestive system
CPT/HCPCS: 43239; 43255; 45378; 87426; 88305; 88313; 88342; C9803; J7120; J2405